=== PATIENT | female | born 1995 | race Asian ===

== ENCOUNTER 2020-02-24 20:10 | Emergency (ER) | payer OTHER ==
--- NOTE | 2020-02-24 21:02 | TELE ---
HPI Do you have fever,cough or shortness of breath?: No - General Reason For Visit: VIRTUAL VISIT History Source: Patient Review of Systems - Review of Systems Constitutional: No: Fever Respiratory: No: Cough *Physical Exam - Physical Exam Respiratory/Chest: negative: Respiratory Distress Discharge Diagnosis at time of Disposition: Encounter for laboratory testing for COVID-19 virus - Referrals - Patient Instructions - Discharge Disposition: HOME Condition at time of Disposition: Stable
== END 2020-02-24 21:02 | disposition home or self-care (01) ==
LOC: JVIRT 20:10
DX: Z11.59 Encounter for screening for other viral diseases (principal)
CPT/HCPCS: Q3014-GT; U0003